=== PATIENT | female | born 1945 | race Caucasian/White ===

== ENCOUNTER → 2023-03-21 | Emergency (ER) | payer OTHER ==
[~2023-03-21] VITALS: Ht 157.5 cm; Wt 76.2 kg
[~2023-03-21] MED LIST: ATORVASTATIN CA10 MG PO; CIPRO500 MG PO; LEVSIN/SL0.125 MG SL; METOPROLOL SUCC50 MG PO; METRONIDAZOLE500 MG PO; PEPCID AC20 MG PO; PROLIA60 MG/1 ML; VALSARTAN-HCTZ1 EAC3 PO
== END | disposition home or self-care (01) ==
LOC: ER 13:15
DX: K57.32 Diverticulitis of large intestine without perforation or abscess without bleeding (principal); I10 Essential (primary) hypertension; Z20.822 Contact with and (suspected) exposure to COVID-19